=== PATIENT | male | born 2000 | race Caucasian/White ===

== ENCOUNTER 2019-08-04 10:57 | Emergency (ER) | payer OTHER ==
[~2019-08-04] VITALS: Ht 167.6 cm; Wt 65.9 kg
[2019-08-04 11:30] VITALS: BP 139/72
== END 2019-08-04 12:22 | disposition home or self-care (01) ==
LOC: EMS 11:05
DX: J20.9 Acute bronchitis, unspecified (principal); L50.9 Urticaria, unspecified; F17.290 Nicotine dependence, other tobacco product, uncomplicated
CPT/HCPCS: 99406